=== PATIENT | female | born 1985 | race Caucasian/White ===

== ENCOUNTER 2019-03-10 07:40 | Emergency (ER) | payer OTHER ==
[~2019-03-10] VITALS: Ht 170.2 cm; Wt 59.0 kg
[2019-03-10 07:43] VITALS: BP 109/78
--- NOTE | 2019-03-10 07:49 | NUR ---
PT WHEELCHAIRED TO BED 11 Addendum: 03/10/19 at 0751 by [email or web address] bed 9
--- NOTE | 2019-03-10 08:00 | NUR ---
X RAY AT BEDSIDE.
--- NOTE | 2019-03-10 08:02 | NUR ---
Note undone in EDM - 03/10/19 at 0816 by MEDDI Patient stated she jumped into a hole to pet a horse last night (03/09/19). She states a pain of 9/10 and used ice packs to relieve pain. No pain meds used. Left ankle with swelling. +pedal pulse Right leg elevated.Patient positioned for comfort. BEDRAILS UP X1 ; BED DOWN. ER MD MADE AWARE OF PT STATUS.
--- NOTE | 2019-03-10 08:16 | NUR ---
Patient stated she jumped into a hole to pet a horse last night (03/09/19). She states a pain of / and used ice packs to relieve pain. No pain meds used. Left ankle with swelling. +pedal pulse on right foot. Right leg elevated. Patient positioned for comfort. Bedrails x 1 ; BED DOWN. ER aware of patient's status. Addendum: 03/10/19 at 0819 by NAPOLEON Patient jumped off a wall
[2019-03-10 09:35] VITALS: BP 109/78
--- NOTE | 2019-03-10 09:35 | NUR ---
Note silvia in EDM - 03/10/19 at 0947 by NAPOLEON Patient discharged with v/s stable. Written and verbal after care instructions given and explained. Patient alert, oriented and verbalized understanding of instructions. Ambulatory with steady gait. All questions addressed prior to discharge. ID band removed. Patient advised to follow up with PMD. Rx of [place] given. Patient educated on indication of medication including possible reaction and side effects. Opportunity to ask questions provided and answered.
--- NOTE | 2019-03-10 09:41 | NUR ---
PT EXPRESSES THAT SHE DOES NOT WANT CRUTCHES AT THIS TIME. MD AND RN MADE AWARE PT EXPRESSES DISCOMFORT WITH POSTERIOR SPLINT. MD AND RN MADE AWARE. PMSC's within normal limit at this time.
--- NOTE | 2019-03-10 09:43 | NUR ---
PER MD PT IS READY TO BE DISCHARGED. ALL PT QUESTIONS WERE REDIRECTED TO AND ANSWERED BY MD. RN MADE AWARE
--- NOTE | 2019-03-10 09:47 | NUR ---
Patient discharged with v/s stable. Written and verbal after care instructions given and explained. Patient alert, oriented and verbalized understanding of instructions. Ambulatory with wheelchair to car. All questions addressed prior to discharge. ID band removed. Patient advised to follow up with PMD. Rx of [place] given. Patient educated on indication of medication including possible reaction and side effects. Opportunity to ask questions provided and answered.
== END 2019-03-10 09:47 | disposition home or self-care (01) ==
LOC: MED 07:40
DX: S92.151A Displaced avulsion fracture (chip fracture) of right talus, initial encounter for closed fracture (principal); Z88.5 Allergy status to narcotic agent; Z91.040 Latex allergy status; X50.1XXA Overexertion from prolonged static or awkward postures, initial encounter; Y93.89 Activity, other specified; Y92.89 Other specified places as the place of occurrence of the external cause; Y99.8 Other external cause status
CPT/HCPCS: 29505; 73610; 99283